=== PATIENT | male | born 1955 | race African-American/Black ===

== ENCOUNTER 2020-07-25 12:21 | Outpatient (CLI) | payer MEDICARE, SELFPAY ==
--- NOTE | ~2020-07-25 | CT_ITS ---
EXAMINATION:CT diagnostic chest wo con DATE: 07/25/2020 16:14 INDICATION: Abnormal chest radiographs. Shortness of breath. TECHNIQUE: Computed tomography (CT) of the chest was performed without intravenous contrast. Automate d exposure control and iterative reconstruction technique were employed. The dose-length product (DLP ) was 262.55 mGy-cm. COMPARISON: Chest 2 views 07/25/2020 FINDINGS: There is mild scarring at the lung apices. There is moderate emphysema. A calcified left shakeel ng nodule and calcified left hilar and mediastinal lymph nodes are consistent with old granulomatous disease. There is tree-in-bud opacities in right lower lobe, consistent with pneumonia. No pleural ef fusion. There is an 8 mm thyroid nodule, likely not clinically significant. The heart size is normal. No pericardial effusion. There are prominent paracardial fat pads. There are cysts in the liver bettina uring up to 1.7 cm. Calcifications in the spleen are consistent with old granulomatous disease. There is a 6.0 cm cyst in right kidney. There is moderate thoracic spondylosis. IMPRESSION: 1. Mild pneumonia in right lung lower lobe. 2. Prominent right paracardial fat pad correlating with the chest radiograph abnormality. 3. Moderate emphysema. Reviewed, dictated and finalized at location A. IMPRESSION: 1. Mild pneumonia in right lung lower lobe. 2. Prominent right paracardial fat pad correlating with the chest radiograph ab normality. 3. Moderate emphysema.
--- NOTE | ~2020-07-25 | XR_ITS ---
XR shoulder LT min 2V 07/25/2020 12:55 INDICATION: Left shoulder pain. COPD and swelling. PROCEDURE: 4 views left shoulder COMPARISON: No prior studies for comparison. FINDINGS: Fracture, dislocation or subluxation is not identified. The soft tissues appear within norm al limits. No foreign bodies are identified. IMPRESSION: 1: NO ACUTE BONE OR JOINT ABNORMALITY IDENTIFIED. Reviewed, dictated and finalized at location B.
--- NOTE | ~2020-07-25 | XR_ITS ---
XR chest 2V 07/25/2020 12:55 Indication: Chest pain. Cough. Procedure: 2 view chest Comparison: No prior studies for comparison. Findings: There is a masslike density overlying the right cardiophrenic angle, most likely prominent pericardial fat pad, although further evaluation with CT is recommended to exclude mass. Heart size n ormal. No focal pneumonia, edema or effusion. No pneumothorax. Impression: 1: Masslike density overlying the right cardiophrenic angle fat pad. Recommend correlation with CT ch est without contrast for further assessment. Reviewed, dictated and finalized at location B. Impression: 1: Masslike density overlying the right cardiophrenic angle fat pad. Recommend correlation with CT chest without contrast for further assessment.
== END 2020-07-25 12:22 | disposition home or self-care (01) ==
PROVIDERS: PCP Emergency Medicine; Visit Provider Emergency Medicine
DX: M25.512 Pain in left shoulder (principal); J18.9 Pneumonia, unspecified organism; J43.9 Emphysema, unspecified
CPT/HCPCS: 71046; 71250; 73030

== ENCOUNTER 2020-07-25 16:34 | Emergency (ER) | payer MEDICARE, SELFPAY ==
[2020-07-25 17:53] VITALS: BP 155/85; PULSE 91; RESP 18; TEMP 36.7; O2SAT 97
[2020-07-25 18:08] LABS: Basophils Absolute Auto 0.1 K/mm3 (0.0-0.1); Basophils Percent Auto 0.6 % (0.2-1.2); Eosinophils Absolute Auto 0.2 K/mm3 (0-0.3); Eosinophils Percent Auto 1.9 % (0-4.4); Hematocrit 46.2 % (42.0-52.0); Hemoglobin 15.1 g/dL (14.0-18.0); Immature Granulocyte Absolute 0.01 K/mm3 (0.00-0.031); Immature Granulocyte Percent A 0.1 % (0-0.5); Lymphocytes Absolute Auto 2.83 K/mm3 (0.9-3.2); Mean Corpuscular HGB Conc 32.7 g/dl (32-36); Mean Corpuscular Hemoglobin 27.8 pg (26-34); Mean Corpuscular Volume 84.9 fl (80-100); Mean Platelet Volume 8.9 fl (7.4-10.4); Monocytes Absolute Auto 0.9 K/mm3 (0.1-0.6); Monocytes Percent Auto 10.1 % (2.6-8.5); Neutrophils Absolute Auto 4.9 K/mm3 (1.3-6.7); Neutrophils Percent Auto 55.3 % (45.5-73.1); Platelet Count Result 265 k/mm3 (150-375); Red Blood Count 5.44 M/mm3 (4.6-6.20); Red Cell Distribution Width 13.7 % (11.5-14.5); White Blood Count 8.9 K/mm3 (4.5-10.0)
[2020-07-25 18:21] LABS: Alanine Aminotransferase 17 U/L (4-50); Albumin Level 4.3 g/dL (3.5-5.1); Alkaline Phosphatase 78 U/L (38-126); Anion Gap 8 mmol/L (8-16); Aspartate Amino Transferase 26 U/L (17-59); Bilirubin,Total 0.3 mg/dL (0.2-1.3); Blood Urea Nitrogen 11 mg/dL (9-20); Carbon Dioxide 28 mmol/L (22-30); Chloride 103 mmol/L (98-107); Estimated CRCL calculation 53 ml/min; Estimated Glomerular Filt Rate > 60; Glucose 106 mg/dL (75-110); Potassium 3.6 mmol/L (3.4-5.0); Sodium 139 mmol/L (137-145)
[2020-07-25 19:26] VITALS: RESP 16
--- NOTE | 2020-07-25 19:28 | ED.RECABL ---
HPI - Recheck/Abnormal Lab/Rx General Chief Complaint: Recheck/Abnormal Lab/Rx Stated Complaint: abnormal imaging Time Seen by Provider: 07/25/20 19:28 Source: patient Mode of arrival: ambulatory Limitations: no limitations History of Present Illness HPI narrative: Patient is a 64-year-old male who presented from outpatient radiology for evaluation of possible pneumonia. Patient was noted to have an infiltrate on his CT scan. Patient does report mild cough. He denies fever, chills. He denies any history of Covid. No loss of sense of taste or smell. He denies any chest pain. Denies any shortness of breath. No recent sick contacts. Patient states he feels well other than mild cough. No hemoptysis. No recent travel. Related Data Allergies Allergy/AdvReac Type Severity Reaction Status Date / Time No Known Allergies Allergy Verified 07/25/20 17:57 Review of Systems Review of Systems: Narrative: CONSTITUTIONAL: Denies fever, chills EYES: Denies visual changes, redness, or discharge. ENT: Denies rhinorrhea, congestion, sore throat CARDIOVASCULAR: Denies chest pain RESPIRATORY: Reports cough without shortness of breath GASTROINTESTINAL: Denies abdominal pain GENITOURINARY: Denies dysuria or hematuria. SKIN: Denies rash or itching. MUSCULOSKELETAL: Denies back pain NEUROLOGIC: Denies headache or weakness PMFSH Social History Social History (Updated 07/25/20 @ 20:19 by Desiree Brannon MD) Alcohol intake: never Substance use: never Living arrangements: with family Gender identity (if verbalized by the patient): Male Exam Narrative: Exam Narrative: GENERAL: Awake, alert, conversant HEAD: Normocephalic, atraumatic. EYES: PERRLA and EOMI. ENT: Nares clear, no rhinorrhea or epistaxis. Mucous membranes moist. NECK: Supple. CHEST: No respiratory distress, breathing even and non labored, no coarse respirations HEART: Regular rate, sinus rhythm ABDOMEN:Non distended, non tender EXTREMITIES: Normal range of motion. No edema. SKIN: Warm, dry, no rash. NEURO:No focal deficits. Alert and oriented x3 Course Vital Signs Vital signs: Vital Signs Temperature 36.7 C 07/25/20 17:53 Pulse Rate 91 07/25/20 17:53 Respiratory Rate 18 07/25/20 17:53 Blood Pressure 155/85 H 03/30/21 17:53 Pulse Oximetry 97 07/25/20 17:53 Temperature 36.7 C 07/25/20 20:15 Pulse Rate 86 07/25/20 20:15 Respiratory Rate 16 07/25/20 20:15 Blood Pressure 149/86 H 07/25/20 20:15 Pulse Oximetry 98 07/25/20 20:15 MDM - Recheck/Abnormal Lab/Rx MDM Narrative Medical decision making narrative: Patient presented for evaluation of outpatient radiology testing that showed he had an infiltrate concerning for pneumonia. No Covid type symptoms. He is afebrile. He does report a mild cough but otherwise feels well. After shared decision making, patient would like to be prescribed an antibiotic after we discussed risks and benefits given his imaging. Patient was discharged home and advised follow-up with his primary care physician regarding results of his radiographic studies and treatment regimen. He was advised to return should his symptoms change or anything worsen. Lab Data Attestation: I reviewed the patient's lab results. Result diagrams: 07/25/20 18:00 07/25/20 18:00 Labs: Lab Results 07/25/20 07/25/20 Range/Units 18:00 18:00 WBC 8.9 (4.5-10.0) K/mm3 RBC 5.44 (4.6-6.20) M/mm3 Hgb 15.1 (14.0-18.0) g/dL Hct 46.2 (42.0-52.0) % MCV 84.9 (80-100) fl MCH 27.8 (26-34) pg MCHC 32.7 (32-36) g/dl RDW 13.7 (11.5-14.5) % Plt Count 265 (150-375) k/mm3 MPV 8.9 (7.4-10.4) fl Immature Gran % (Auto) 0.1 (0-0.5) % Neut % (Auto) 55.3 (45.5-73.1) % Lymph % (Auto) 32.0 (18.3-44.2) % Dixie % (Auto) 10.1 H (2.6-8.5) % Eos % (Auto) 1.9 (0-4.4) % Baso % (Auto) 0.6 (0.2-1.2) % Lymph # (Auto) 2.83 (0.9-3.2) K/mm3 Dixie # (Auto) 0
[2020-07-25 20:15] VITALS: BP 149/86; PULSE 86; RESP 16; TEMP 36.7; O2SAT 98
== END 2020-07-25 20:16 | disposition home or self-care (01) ==
PROVIDERS: Emergency Provider Emergency Medicine; PCP Emergency Medicine
DX: J18.9 Pneumonia, unspecified organism (principal)
CPT/HCPCS: 36415; 71046; 71250; 73030; 80053; 85025; 99283

== ENCOUNTER 2020-10-05 12:51 | Outpatient (CLI) | payer MEDICARE, SELFPAY ==
[2020-10-05 13:00] VITALS: PULSE 70; O2SAT 95
[2020-10-05 13:05] VITALS: PULSE 111; O2SAT 95
[2020-10-05 13:15] VITALS: PULSE 72; O2SAT 95
--- NOTE | 2020-10-05 14:29 | HOMEO2EVAL ---
Evaluation was performed at [facility] Home Oxygen Evaluation RC: Home Oxygen (O2) Evaluation Start: 10/05/20 14:07 Freq: Status: Active Protocol: RPE Activity Type Activity Date Activity User E-Sign Co-Sign Detail Recorded Client Recorded Date Recorded By Document 10/05/20 13:00 [email or web address] [id number] 10/05/20 14:29 [email or web address] Document 10/05/20 13:05 [email or web address] 10/05/20 14:29 [email or web address] Document 10/05/20 13:15 [email or web address] [email or web address] 10/05/20 14:29 ANDRZEJ 10/05/20 10/05/20 10/05/20 13:00 13:05 13:15 Home O2 Evaluation Test Phase Resting Exercise Resting Oxygen Delivery Room Air Room Air Pulse Oximetry (90-100 %) 95 95 95 Pulse Rate (60-100 beats/min) 70 111 H 72 Activity Tolerance Good Ambulation Distance (feet) 500 Treatment Charges O2 Evaluation - Outpatient
--- NOTE | 2020-10-16 16:45 | WPDPFTINT ---
PFT Procedure Performed PFT Procedure Performed Plethysmography (Lung Vol) Diffusing Cap (DLCO) Flow Vol Loop Spirometry w/o Bronchodil PFT Interpretation This is a pulmonary function test with spirometry, plethysmography and diffusing capacity. The test was performed and results interpreted in accordance with the 2019 and 2005 ATS/ERS Task Force guidelines respectively using the Global Lung Function Initiative-2012 reference equations. Patient demonstrated good effort and cooperation. Reproducibility criteria were met. The quality of the spirometry maneuver was Grade B. Findings: Spirometry: There is decreased maximal expiratory airflow at all lung volumes with concave expiratory flow tracing. The contour of the inspiratory flow tracing is normal. The FVC is 3.23 L, 121% predicted. The FEV1 is 1.70 L, 80% predicted. The FEV1: FVC ratio is 53%. Plethysmography: The total lung capacity is 6.75 L, 147% predicted. The functional residual capacity is 4.03, 165% predicted. The residual volume is 3.51 L, 201% predicted. Diffusing capacity: The absolute diffusion capacity is 15.0, 65% predicted. The diffusing capacity corrected for alveolar volume is 2.96, 65% predicted. Impression: There is a mild obstructive abnormality with a normal FEV 1. The increase in residual volume is consistent with air trapping from an obstructive abnormality. Hyperinflation is present is demonstrated by the increase in functional residual capacity and total lung capacity and is consistent with an obstructive abnormality. The absolute diffusing capacity is mildly decreased and remains mildly decreased when corrected for alveolar volume. There are no prior studies for comparison
== END 2020-10-05 12:52 | disposition home or self-care (01) ==
PROVIDERS: PCP Emergency Medicine; Visit Provider Internal Medicine Pulmonary Disease
DX: J44.9 Chronic obstructive pulmonary disease, unspecified (principal); R06.02 Shortness of breath; R06.09 Other forms of dyspnea
CPT/HCPCS: 94375; 94618; 94726; 94729

== ENCOUNTER 2020-11-01 09:48 | Outpatient (CLI) | payer MEDICARE, SELFPAY ==
--- NOTE | ~2020-11-01 | CT_ITS ---
EXAMINATION: CT diagnostic chest wo con EXAM DATE: 11/01/2020 10:07 INDICATION: J18.9 - Pneumonia, unspecified organism. TECHNIQUE: Spiral CT of the chest without contrast. Axial, coronal and sagittal images of the chest were reviewed. Coronal maximum intensity pixel images of chest reviewed. The dose-length product ( DLP) for this examination was 257.61 mGy-cm. The exposure was tailored according to patient size (au to mA exposure control), and iterative reconstruction (ASIR) was used as additional dose reduction [place]. Comparison is made to prior examination from 07/25/2020. FINDINGS: Mild to moderate emphysema and hyperinflation. Right lower lobe reticulonodular, tree-in-b ud pattern punctate airspace disease with some associated linear opacities. This is stable or with mi ld improvement. Probably chronic infection or postinfectious residua. No confluent consolidation. Tr ritu pericardial effusion. Tracheobronchial tree is patent. There is no mediastinal, hilar or axill jackeline lymphadenopathy. There is no pneumothorax. Heart normal in size. No evidence of coronary ar terial calcification. There is cholelithiasis. Incompletely imaged fluid density right renal lesion, probably cyst measuring about 6 cm. There are small liver cysts. There is mild thoracic spondylosis without osteoblastic or osteolytic lesions identified. IMPRESSION: 1. Right lower lobe punctate reticular nodular opacities likely chronic infection or postinfectious residua. 2. Mild to moderate emphysema and hyperinflation. 3. Cholelithiasis. Reviewed, dictated and finalized at location B. IMPRESSION: 1. Right lower lobe punctate reticular nodular opacities likely chronic infect ion or postinfectious residua. 2. Mild to moderate emphysema and hyperinflation. 3. Cholelithiasis.
== END 2020-11-01 09:49 | disposition home or self-care (01) ==
PROVIDERS: PCP Emergency Medicine; Visit Provider Internal Medicine Pulmonary Disease
DX: J18.9 Pneumonia, unspecified organism (principal); K80.20 Calculus of gallbladder without cholecystitis without obstruction; J43.9 Emphysema, unspecified; R91.8 Other nonspecific abnormal finding of lung field
CPT/HCPCS: 71250

== ENCOUNTER 2020-11-30 09:01 | Outpatient (CLI) | payer MEDICARE, SELFPAY ==
--- NOTE | 2020-12-25 18:11 | WPDSLEEPSTUD ---
Sleep Study Date of Study: 11/30/20 Ordering Provider: Michael Seals MD Interpreting Physician: Lupis Dodd MD Sleep Study Type: Polysomnogram Height: 1.8 m Weight: 93.44 kg Body Mass Index: 28.7 Neck Circumference (inches): 18 [place]: 5 Reason for Sleep Study Hypersomnia Sleep History Jerome Pinedo Jr is a 65 year old man with occasional episodes of falling asleep during the day. He rarely awakens from sleep feeling short of breath. He rarely awakens at night with heartburn, belching or coughing. He does not snore. He rarely has trouble sleeping with a cold. He rarely wakes up gasping for breath at night or having breathing problems at night reported to him by others. He rarely sweats excessively at night or notice his heart pounding or beating irregularly at night. He rarely falls asleep involuntarily he denies falling asleep while driving. He does not have loss of muscle tone with strong emotion and does not have daytime difficulties due to excessive sleepiness. He does not have daytime difficulties at his job due to excessive sleepiness and does not feel paralyzed on waking or falling asleep. He rarely has vivid dreamlike scenes upon awakening or falling asleep. He is not afraid to go to sleep. he does not have nightmares. He rarely remembers his dreams. He rarely has racing thoughts. He denies feelings of sadness or depression. He rarely has anxiety. He rarely notices parts of his body jerking. He rarely kicks at night and rarely has crawling and aching feelings in his legs. He occasionally has leg pain at night. He does not have morning jaw pain. He does not grind his teeth during sleep. He does not wake up due to pain at night and does not feel stiff in the morning. Normal bedtime is between 11:00 p.m. and midnight taking an hour to fall asleep waking once to urinate, returning to sleep within 30-40 minutes. He wakes the morning between 5 and 6:00 a.m.. His weekend schedule is the same. He estimates getting 4 hours of sleep at night. He takes naps in the afternoon. A short nap might be refreshing. Habits: Former smoker. Caffeine 1 cup per day. Alcohol: beer. PMFSH Past Medical History Medical History COPD (chronic obstructive pulmonary disease) Family History Family History Mother Breast cancer Father Hypertension Social History Social History Smoking status: Former smoker Smoking end date: 08/02/17 Alcohol intake: current Substance use: never Gender identity (if verbalized by the patient): Male Medications Home Medications Medication Instructions Recorded Confirmed Type umeclidinium 62.5 mcg-vilanterol 1 inh INHALATION DAILY #60 ea 11/20/20 11/20/20 Rx 25 mcg/actuation powdr for inhalation Sleep Procedure This test was performed using the [email or web address] multiple channel system including EOG, EEG, submental EMG, EKG, nasal and oral airflow using thermistors and nasal pressure sensors, chest and abdominal belts for body position data, and pulse oximetry. Video monitoring was also performed. The study was scored using CMS guidelines. Sleep Architecture The recording duration was 376.5 minutes. Sleep duration was 222.5 minutes. Sleep efficiency is low 59.1%. Sleep latency is prolonged 36.1 minutes. REM latency 77 minutes. There were 34.6% of the study awake after sleep onset. Sleep architecture showed 6.9% stage 1 sleep, 50.8% stage 2 sleep, absence of stage 3 sleep and 7.6% stage REM. The patient spent 22.5% of the study in the supine position. Sleep was fragmented. There were 2 REM cycles. Respiratory Analysis The apnea-hypopnea index is 4.0. The obstructive index is 3.8 and the central index is 0.3. In supine REM there was 1 obstructive hypopnea for an index of 6.7. There were no
[2020-12-25 20:44] VITALS: BMI 28.7
== END 2020-12-01 05:44 | disposition home or self-care (01) ==
LOC: ANHCSM 09:03
PROVIDERS: PCP Emergency Medicine; Visit Provider Internal Medicine Pulmonary Disease
DX: G47.10 Hypersomnia, unspecified (principal); G47.34 Idiopathic sleep related nonobstructive alveolar hypoventilation
CPT/HCPCS: 95810

== ENCOUNTER 2021-09-28 10:22 | Outpatient (CLI) | payer MEDICARE, SELFPAY ==
[2021-09-28 10:51] LABS: Hematocrit 46.3 % (42.0-52.0); Hemoglobin 14.7 g/dL (14.0-18.0); Mean Corpuscular HGB Conc 31.7 g/dl (32-36); Mean Corpuscular Volume 85.1 fl (80-100); Mean Platelet Volume 8.7 fl (7.4-10.4); Platelet Count Result 260 k/mm3 (150-375); Red Blood Count 5.44 M/mm3 (4.6-6.20); Red Cell Distribution Width 14.1 % (11.5-14.5); White Blood Count 8.2 K/mm3 (4.5-10.0)
[2021-09-28 11:03] LABS: Alanine Aminotransferase 18 U/L (6-50); Albumin Level 4.1 g/dL (3.5-5.1); Alkaline Phosphatase 96 U/L (38-126); Anion Gap 4 mmol/L (8-16); Aspartate Amino Transferase 30 U/L (17-59); Bilirubin,Total 0.4 mg/dL (0.2-1.3); Blood Urea Nitrogen 10 mg/dL (9-20); Calcium 8.8 mg/dL (8.4-10.2); Carbon Dioxide 31 mmol/L (22-30); Chloride 104 mmol/L (98-107); Cholesterol 177 mg/dL (0-200); Estimated Glomerular Filt Rate > 60; Glucose 91 mg/dL (65-110); HDL Direct 44 mg/dL; Potassium 4.3 mmol/L (3.4-5.0); Sodium 139 mmol/L (137-145); Triglycerides 153 mg/dL (<150)
[2021-09-28 11:15] LABS: LDL Cholesterol Direct 93 mg/dL
[2021-09-28 11:30] LABS: Thyroid Stimulating Hormone 0.674 uIU/mL (0.465-4.680)
[2021-09-28 11:44] LABS: Free T4 Free Thyroxine 1.24 ng/mL (0.78-2.19)
== END 2021-09-28 10:23 | disposition home or self-care (01) ==
LOC: ANHLAB 10:27
PROVIDERS: PCP Emergency Medicine; Visit Provider Emergency Medicine
DX: E78.5 Hyperlipidemia, unspecified (principal)
CPT/HCPCS: 36415; 80053; 80061; 84439; 84443; 85027

== ENCOUNTER 2021-10-10 09:41 | Outpatient (CLI) | payer MEDICARE, SELFPAY ==
--- NOTE | ~2021-10-10 | US_ITS ---
US renal BI DATE: 10/10/2021 11:27 INDICATION: Right kidney cyst TECHNIQUE: Real-time imaging of the kidneys and urinary bladder COMPARISON: None FINDINGS: The right kidney measures 12.6 cm length, left kidney 11.5 cm length. There is a 6.7 x 7.3 cm cyst of the right kidney. No other renal mass lesion is evident. No hydronephrosis. The urinary bladder is unremarkable. IMPRESSION: 6.7 x 7.3 cm right renal cyst Reviewed, dictated and finalized at Location [facility]. Reviewed, dictated and finalized at location A.
--- NOTE | ~2021-10-10 | US_ITS ---
US abdomen limited DATE: 10/10/2021 12:50 INDICATION: Liver cyst TECHNIQUE: Real-time imaging of liver, pancreas, or areas COMPARISON: 11/01/2020 CT chest FINDINGS: No pancreatic mass lesion or pancreatic duct dilatation is noted. Up to approximately 1.5 cm hepatic cysts are identified. Normal hepatopedal portal venous flow direct ion. The common bile duct measures up to 5.7 mm, within normal range. Multiple gallstones are noted, with associated acoustical shadowing. No gallbladder wall thickening. Negative sonographic Campoverde's sign. IMPRESSION: Cholelithiasis; negative sonographic Campoverde's sign Hepatic cysts Reviewed, dictated and finalized at Location [facility]. Reviewed, dictated and finalized at location A.
== END 2021-10-10 09:42 | disposition home or self-care (01) ==
PROVIDERS: PCP Emergency Medicine; Referring Provider Nurse Practitioner Family; Visit Provider Emergency Medicine
DX: N28.1 Cyst of kidney, acquired (principal); K76.89 Other specified diseases of liver; K80.20 Calculus of gallbladder without cholecystitis without obstruction
CPT/HCPCS: 36415; 76705; 76775; 82104